=== PATIENT | male | born 2005 | race African-American/Black ===

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

== ENCOUNTER 2024-01-19 12:27 | Emergency (ER) | payer OTHER, SELFPAY ==
[2024-01-19 13:37] LABS: Influenza A by NAA Not Detected (NotDetected); Influenza B by NAA Not Detected (NotDetected); SARS-CoV-2 NAA Rapid Test Not Detected (NotDetected)
== END 2024-01-19 13:04 | disposition home or self-care (01) ==
LOC: MADERS 12:27
DX: B34.9 Viral infection, unspecified (principal); Z55.6 Problems related to health literacy
CPT/HCPCS: 99284